=== PATIENT | female | born 1975 | race Caucasian/White ===

== ENCOUNTER 2016-06-19 16:59 | Emergency (ER) | payer MEDICAID ==
[~2016-06-19] VITALS: Wt 90.0 kg
[~2016-06-19 16:59] MED LIST: HYDR-3498 PO; IBUP-1542 PO
[2016-06-19] MEDS ORDERED: LIDOCAINE 1% (MDV) 20 ML INJ SC ONE (19:00)
[2016-06-19] MEDS ORDERED: CEPH-443 PO (19:04)
[2016-06-19] MEDS ORDERED: BACTDS PO (19:05)
[2016-06-19 19:24] VITALS: BP 137/89; PULSE 86; RESP 20; TEMP 98.6
--- NOTE | 2016-06-19 21:02 | ERD ---
ER Documentation Chief Complaint Date/Time DATE: 06/19/16 TIME: 20:58 Chief Complaint VAGINAL SWELLING FROM CYST ONSET ABOUT 3 DAYS AGO . NO DRAINAGE ROS All systems reviewed and are negative except as per history of present illness. Medications Home Meds Active Scripts Sulfamethoxazole-Trimethoprim* (Bactrim* DS) 800-160 Mg Tab, 1 TAB PO BID for 5 Days, TAB Prov:SONA WHEELER PA-C 06/19/16 Cephalexin* (Keflex*) 500 Mg Capsule, 500 MG PO QID for 5 Days, CAP Prov:SONA WHEELER PA-C 06/19/16 Ibuprofen* (Motrin*) 600 Mg Tab, 600 MG PO Q6, #30 TAB Prov:KATIUSKA HENRY MD 07/28/15 Hydrocodone Bit-Acetaminophen* ([place]*) 5-325 Mg Tab, 1 TAB PO Q6 Y for PAIN, # 14 TAB Prov:KATIUSKA HENRY MD 07/28/15 Allergies Allergies: Coded Allergies: aspirin (Verified Allergy, Unknown, RASH/SWELLING, 04/27/14) PMhx/Soc Medical and Surgical Hx: pt denies Medical Hx, pt denies Surgical Hx History of Surgery: No Anesthesia Reaction: No Hx Neurological Disorder: No Hx Respiratory Disorders: No Hx Cardiac Disorders: No Hx Psychiatric Problems: No Hx Miscellaneous Medical Probl: Yes (bartholin cysts) Hx Alcohol Use: No Hx Substance Use: No Hx Tobacco Use: No Smoking Status: Never smoker FmHx Family History: No coronary disease, No diabetes, No other Physical Exam Vitals Vital Signs Date Time Temp Pulse Resp B/P Pulse Ox O2 Delivery O2 Flow Rate FiO2 06/19/16 19:24 98.6 86 20 137/89 100 Room Air 06/19/16 18:10 100.0 90 20 157/88 99 Physical Exam GENERAL: Well-developed, well-nourished female. Appears in no acute distress. HEAD: Normocephalic, atraumatic. EYES: Pupils are equally reactive bilaterally. EOMs grossly intact. No conjunctival erythema. ENT: Moist mucous membranes. No uvula deviation. No kissing tonsils. No exudates. NECK: Supple. No lymphadenopathy or thyromegaly. No meningismus. negative kernig. negative brudinski. LUNG: Clear to auscultation bilaterally. No rhonchi, wheezing, rales or coarse breath sounds. HEART: Regular rate and rhythm. No murmurs, rubs or gallops. ABDOMEN: No scars, ecchymosis or rashes noted. Soft, nontender, and nondistended. Positive bowel sounds in all four quadrants. No rebound tenderness , no guarding. (-) McBurneys point tenderness. No CVA tenderness. : 3cm mostly indurated cyst on left vaginal area. BACK: No midline tenderness. Extremities: Equal pulses bilaterally. No peripheral clubbing, cyanosis or edema. No unilateral leg swelling. NEUROLOGIC: Alert and oriented. Moving all four extremities. 5/5 strength in all extremities. Normal speech. Steady gait. SKIN: Normal color. Warm and dry. No rashes or lesions. Capillary refill < 2 seconds Results 24 hrs Current Medications Medications (Trade) Dose Ordered Sig/Kristin Route PRN Reason Start Time Stop Time Status Last Admin Dose Admin Lidocaine (Xylocaine 1% (Mdv) 20 ml) 20 ml ONCE ONCE SC 06/19/16 19:00 06/19/16 19:01 DC Procedures/MDM ER COURSE: I kept the patient and/or family informed of laboratory and diagnostic imaging results throughout the emergency room course. PROCEDURES: Abscess Incision and Drainage with irrigation by me: Location: 3 cm left vaginal area Anesthesia: [Local 1% Lidocaine] Technique: [Irrigated. very minimal drainage] Packing: [None] Complications: [Neurovascularly intact post procedure] 48 hour wound check. Scar minimization instructions given. Patient's skin symptoms have stabilized while they have been evaluated in the department and are appropriate for outpatient care and work up. MEDICAL DECISION MAKING: This is a 40-year-old female who presents with Bartholin's cyst. Vital signs were reviewed. Patient is afebrile. Patient is not hypoxic. Patient has a low- grade fever. I decided to attempt I&D as patient is requesting it. However the cyst is mostly indurated with very mild fluctuance. Low suspicion for necrotizing fasciitis, SJS, toxic epidermal necrolysis, Kawasaki, erythema multiforme, gangrene, scarlet fever, meningococcemia, sepsis, anaphylaxis, sepsis, deep space infection, or foreign body. DISCHARGE: At this time, patient is stable for discharge and outpatient management with no new complaints during the ER course. Patient was sent home with Bactrim and Keflex. Patient needs to follow up with gynecology for further evaluation as she has had multiple bartholyn cysts in the past. I advised patient return to the ED in 2 days for recheck. patient will be discharged home with instructions to recheck for new or worsening symptoms such as fever, nausea, weakness, LOC and to follow up with primary care in the next 1-2 days. Patient was advised to return to the ER for any new or worsening symptoms. Plan was discussed and patient and/or family understands and agrees. Home instructions were given. Departure Diagnosis: Primary Impression: Bartholin's cyst Condition: Stable Patient Instructions: Bartholin's Cyst (I And D) Referrals: LESTER FRIEDMAN (PCP) JULIAN ANDERSON MD, AZIZEH BARNES, MALKA DELSHAD, GEORGE M MD Additional Instructions: Call your primary care doctor TOMORROW for an appointment during the next 1-2 days.See the doctor sooner or return here if your condition worsens before your appointment time. Follow up with gynecology. Warm compresses and sitz baths. SONA WHEELER PA-C Jun 19, 2016 21:02
--- NOTE | 2016-06-21 18:01 | QN ---
Documentation Comment Laborist consult: 40 y.o. with a left Bartholins cyst. Pt was here 2 days ago and an attempt was made at drainage unsuccessfully. The area is now twice as big, per the pt, and much more painful. Pt denies a fever. PMHx: none. PSHx: C/S x 2. POBHx: x 1, C/S x 2. All: ASA. Procedure: An orange size left Bartholins abscess was identified. The area just inside the entroitus was cleaned with Betadine and 1 cc 1% Lidocaine was injected under the skin. The areq was incised with a #11 blade and a large volume of dark, red purulent, non-malodorous d/c was extruded. The base was massged gently to break up any loculations and more d/c was released. The whole left labia shrank appropriately except for a round bulbous golf ball size area involving the edge of the labia minora.This was incised in the same manner and the same d/c was extruded. The edges of the incision were bleeding but not heavily. Applied pressure with a 4x4 gauze roll while cleaning the whole external area up. Replaced the gauze with instruction for the pt to leave it in place for now for a few hours. A: Left Bartholin's abscess, s/p drainage. P: Keep the area clean and dry. May wash with soap and water. Instructed the HISTORY INSTRUCTOR to give the pt some sterile 4x4's to take home so, if need be, she may place as a pressure dressing to the area. Pt told it will take a few days to go down. She may follow up with her clinic. She may continue the antibiotics she was given at her prior visit. OLEGARIO PIRES MD Jun 21, 2016 18:01
== END 2016-06-19 19:27 | disposition home or self-care (01) ==
LOC: FTE 16:59
DX: N75.0 Cyst of Bartholin's gland (principal)
CPT/HCPCS: 56420; Z7502; Z7610

== ENCOUNTER 2016-06-21 11:40 | Emergency (ER) | payer MEDICAID ==
[~2016-06-21] VITALS: Wt 90.6 kg
[~2016-06-21 11:40] MED LIST changes: +BACTDS PO; +CEPH-443 PO
--- NOTE | 2016-06-21 14:22 | ERD ---
ER Documentation Chief Complaint Date/Time DATE: 06/21/16 TIME: 14:19 Chief Complaint BARTOLIN CYST NOTED ON THURSDAY , HERE FOR SAME. MORE PAIN NO DRAINAGE HPI This is a 40-year-old female presenting to the ER for Bartholin's cyst evaluation. Patient states she was here 2 days ago in which an incision and drainage was done for Bartholin's cyst abscess. patient states pain has gotten worse however no drainage. Patient states abscess has gotten bigger. Patient was placed on Bactrim and Keflex starting 2 days ago after incision and drainage. Patient states this is a recurrent problem for her and has had a catheter placed previously for this about 2 years ago. No fevers or chills. Patient having significant pain and rating pain 9/10. Patient took ibuprofen about 4 hours ago. ROS All systems reviewed and are negative except as per history of present illness. Medications Home Meds Active Scripts Hydrocodone/Acetaminophen ([place] 5-325 Tablet) 1 Each Tablet, 1 TAB PO Q6H Y for PAIN, #7 TAB Prov:DOREEN BARKER NP 06/21/16 Sulfamethoxazole-Trimethoprim* (Bactrim* DS) 800-160 Mg Tab, 1 TAB PO BID for 5 Days, TAB Prov:SONA WHEELER-C 06/19/16 Cephalexin* (Keflex*) 500 Mg Capsule, 500 MG PO QID for 5 Days, CAP Prov:SONA WHEELER PA-C 06/19/16 Ibuprofen* (Motrin*) 600 Mg Tab, 600 MG PO Q6, #30 TAB Prov:KATIUSKA HENRY MD 07/28/15 Hydrocodone Bit-Acetaminophen* ([place]*) 5-325 Mg Tab, 1 TAB PO Q6 Y for PAIN, # 14 TAB Prov:KATIUSKA HENRY MD 07/28/15 Allergies Allergies: Coded Allergies: aspirin (Verified Allergy, Unknown, RASH/SWELLING, 04/27/14) PMhx/Soc History of Surgery: No Anesthesia Reaction: No Hx Neurological Disorder: No Hx Respiratory Disorders: Yes (ASTHMA) Hx Cardiac Disorders: No Hx Psychiatric Problems: No Hx Miscellaneous Medical Probl: Yes (recurrent bartholin's cyst) Hx Alcohol Use: No Hx Substance Use: No Hx Tobacco Use: No Smoking Status: Never smoker Physical Exam Vitals Vital Signs Date Time Temp Pulse Resp B/P Pulse Ox O2 Delivery O2 Flow Rate FiO2 06/21/16 17:25 99.1 87 20 134/90 99 Room Air 06/21/16 11:43 98.8 101 20 133/86 98 Physical Exam Const: No acute distress, alert Head: Atraumatic Eyes: Normal Conjunctiva ENT: Normal External Ears, Nose and Mouth. Neck: Full range of motion..~ No meningismus. Resp: Clear to auscultation bilaterally Cardio: Regular rate and rhythm, no murmurs Abd: Soft, non tender, non distended. Normal bowel sounds Skin: No petechiae or rashes Back: No midline or flank tenderness Ext: No cyanosis, or edema Neur: Awake and alert Psych: Normal Mood and Affect : large 2 inch x 1 inch Bartholin cyst to right labia Results 24 hrs Current Medications Medications (Trade) Dose Ordered Sig/Kristin Route PRN Reason Start Time Stop Time Status Last Admin Dose Admin Acetaminophen (Tylenol Tab) 500 mg ONCE STAT PO 06/21/16 14:34 06/21/16 14:35 DC 06/21/16 14:44 Lidocaine (Xylocaine 1% (Mdv) 20 ml) 20 ml ONCE ONCE SC 06/21/16 16:00 06/21/16 16:01 DC Acetaminophen/ Hydrocodone Bitart ([place] (5/325)) 1 tab ONCE ONCE PO 06/21/16 16:30 06/21/16 16:31 DC 06/21/16 16:50 Procedures/MDM ED COURSE: The patient was stable throughout ED course. I kept the patient and/or family informed of laboratory and diagnostic imaging results throughout the ED course. MDM: 40-year-old female presents to the ER for recurrent Bartholin's cyst. Patient had incision and drainage 2 days ago however pain has gotten worse. Patient believes the abscess has gotten larger. No fevers or chills. Patient has recurrent Bartholin's cyst. Consulted laborist power transmission engineer, Dr. Tam for evaluation. Abscess Incision and Drainage with irrigation by Dr. Tam Location: right labia Anesthesia: Local 1% Lidocaine Technique: Irrigated. Disrupted loculations w/ instrumentation Packing: None Complications: Neurovascularly intact post procedure 48 hour wound check. Scar minimization instructions given. Patient's skin symptoms have stabilized while they have been evaluated in the department and are appropriate for outpatient care and work up. Exam and w/u not consistent w/ sepsis, deep space infection, or foreign body. Diagnosis is Bartholin's cyst. Departure Diagnosis: Primary Impression: Bartholin's cyst Condition: Stable DOREEN BARKER NP Jun 21, 2016 14:22
[2016-06-21] MEDS ORDERED: ACETAMINOPHEN 500 MG TAB PO STA (14:34)
[2016-06-21] MEDS ORDERED: LIDOCAINE 1% (MDV) 20 ML INJ SC ONE (16:00)
[2016-06-21] MEDS ORDERED: HYDR-906 PO (16:19)
[2016-06-21] MEDS ORDERED: HYDROCODONE/APAP (5/325) TAB PO ONE (16:30)
[2016-06-21 17:25] VITALS: BP 134/90; PULSE 87; RESP 20; TEMP 99.1
== END 2016-06-21 17:25 | disposition home or self-care (01) ==
LOC: FTE 11:40
DX: N75.0 Cyst of Bartholin's gland (principal); J45.909 Unspecified asthma, uncomplicated
CPT/HCPCS: 56420; Z7502; Z7610

== ENCOUNTER 2016-12-13 13:59 | Emergency (ER) | payer MEDICAID ==
[~2016-12-13] VITALS: Ht 162.6 cm; Wt 90.0 kg
[~2016-12-13 13:59] MED LIST changes: +HYDR-906 PO
[2016-12-13 14:00] VITALS: Ht 162.6 cm; Wt 90.0 kg
[2016-12-13] MEDS ORDERED: IBUPROFEN 600 MG TAB PO ONE (15:00)
[2016-12-13] MEDS ORDERED: CEPH-443 PO (17:09)
[2016-12-13] MEDS ORDERED: BACITUD TOP (17:09)
--- NOTE | 2016-12-13 17:12 | QN ---
Documentation Comment Patient is a 41-year-old who presents with a left Bartholin's cyst abscess which she has had for the last 3-4 years Patient reports several visits to the ED for I&D of Bartholin's cyst abscess over the last several years She was seen earlier this year in the emergency room here which an I&D was performed at bedside and patient was sent home Upon evaluation today patient's vital signs are stable 4-5 cm left Bartholin's cyst abscess was noted on the left perineal area which patient reports of having pain and difficulty walking Patient was consented for an I&D procedure of the left Bartholin's cyst abscess Then under sterile techniques 5 cc of 1% lidocaine was given for local anesthesia Using a scalpel half a centimeter incision was placed in the middle of the Bartholin's cyst abscess No exudate material was noted; mostly bloody and watery drainage was noted The contents of fluid was sent for both aerobic and anaerobic culture Bartholin's cyst was drained then using silver nitrate sticks the bleeding was controlled Excellent hemostasis was noted Patient tolerated the procedure well Patient was instructed to apply [id number] triple antibiotics on the incision site She was given a prescription for oral antibiotics to be taken for 1 week Patient was further counseled that she should be evaluated by a certified travel counselor as an outpatient for surgical management by marsupialization of the Bartholin's cyst abscess Given the recurrent nature of the Bartholin cyst abscess patient requires surgical management to be scheduled as an outpatient surgery Patient completely understood the plan of care and all her questions were answered Patient is planning to make an appointment with her doctors at [facility] BERT BERKOWITZ MD Dec 13, 2016 17:12
[2016-12-13] MEDS ORDERED: BACITRACIN 0.9 GM OINT TOP ONE (17:30)
[2016-12-13 17:35] VITALS: BP 144/84; PULSE 84; RESP 18; TEMP 98.4
--- NOTE | 2016-12-13 18:10 | ERD ---
ER Documentation Chief Complaint Date/Time DATE: 12/13/16 TIME: 18:04 Chief Complaint ABCESS ON VAGINAL AREA , LUMP ON NECK HPI This is a 41-year-old female presenting to the emergency department for recurrent Bartholin's gland abscess. Patient states she developed pain and swelling to vaginal area 3 days ago. Patient states pain and swelling feels exactly the same as it did with previous Bartholin's gland abscesses. Patient denies any vaginal bleeding or discharge. No fevers or chills. No recent unprotected sex. Patient rating pain 6/10 and has not taken medication for this. Patient states this is an ongoing problem over the last 3-4 years however she has not been able to see an [facility] outpatient for this. ROS All systems reviewed and are negative except as per history of present illness. Medications Home Meds Active Scripts Bacitracin* (Bacitracin Oint (UD)*) 1 Applic Oint, 1 APPLIC TOP ONCE for 7 Days , PKT APPLY TO Prov:DOREEN BARKER NP 12/13/16 Cephalexin* (Keflex*) 500 Mg Capsule, 500 MG PO BID for 7 Days, CAP Prov:DOREEN BARKER NP 12/13/16 Hydrocodone/Acetaminophen ([place] 5-325 Tablet) 1 Each Tablet, 1 TAB PO Q6H Y for PAIN, #7 TAB Prov:DOREEN BARKER NP 06/21/16 Sulfamethoxazole-Trimethoprim* (Bactrim* DS) 800-160 Mg Tab, 1 TAB PO BID for 5 Days, TAB Prov:SONA WHEELER PA-C 06/19/16 Cephalexin* (Keflex*) 500 Mg Capsule, 500 MG PO QID for 5 Days, CAP Prov:BRYANTARIJOSHUA LIMAZ PA-C 06/19/16 Ibuprofen* (Motrin*) 600 Mg Tab, 600 MG PO Q6, #30 TAB Prov:KATIUSKA HENRY MD 07/28/15 Hydrocodone Bit-Acetaminophen* ([place]*) 5-325 Mg Tab, 1 TAB PO Q6 Y for PAIN, # 14 TAB Prov:KATIUSKA HENRY MD 07/28/15 Allergies Allergies: Coded Allergies: aspirin (Verified Allergy, Unknown, RASH/SWELLING, 04/27/14) PMhx/Soc History of Surgery: No Anesthesia Reaction: No Hx Neurological Disorder: No Hx Respiratory Disorders: Yes (ASTHMA) Hx Cardiac Disorders: No Hx Psychiatric Problems: No Hx Miscellaneous Medical Probl: Yes (recurrent bartholin's cyst) Hx Alcohol Use: No Hx Substance Use: No Hx Tobacco Use: No Physical Exam Vitals Vital Signs Date Time Temp Pulse Resp B/P Pulse Ox O2 Delivery O2 Flow Rate FiO2 12/13/16 17:35 98.4 84 18 144/84 98 Room Air 12/13/16 14:00 98.1 88 18 150/88 99 Physical Exam Const: No acute distress, alert Head: Atraumatic Eyes: Normal Conjunctiva ENT: Normal External Ears, Nose and Mouth. Neck: Full range of motion..~ No meningismus. Resp: Clear to auscultation bilaterally Cardio: Regular rate and rhythm, no murmurs Abd: Soft, non tender, non distended. Normal bowel sounds Skin: No petechiae or rashes Back: No midline or flank tenderness Ext: No cyanosis, or edema Neur: Awake and alert Psych: Normal Mood and Affect 4-5 cm left Bartholin's cyst abscess was noted on the left perineal area Results 24 hrs Current Medications Medications (Trade) Dose Ordered Sig/Kristin Route PRN Reason Start Time Stop Time Status Last Admin Dose Admin Ibuprofen (Motrin) 600 mg ONCE ONCE PO 12/13/16 15:00 12/13/16 15:01 DC 12/13/16 15:18 Bacitracin (Bacitracin Oint (Ud)) 1 applic ONCE ONCE TOP 12/13/16 17:30 12/13/16 17:31 DC 12/13/16 17:08 Procedures/MDM MDM: This is a 41-year-old female presenting to emergency department for recurrent Bartholin's gland abscess. No vaginal bleeding or drainage. Patient states this pain feels exactly the same as her previous Bartholin's gland abscesses. Consulted Dr. Chatman, laborist family and consumer education teacher, regarding this patient. Dr. Chatman performed I and D at bedside while in the ED and can refer to her note for more detailed explanation. Patient tolerated procedure well. Patient is appropriate for outpatient management and will be given prescription for Keflex and bacitracin ointment. Instructed patient to follow-up with PCP or [facility] in the next 2-3 days for reassessment and additional management. Instructed patient she needs to follow-up with all of you [facility] for surgical consultation. Return to ED for any high fever, chest pain, difficulty breathing , shortness breath, wheezing, vomiting, diarrhea, abdominal pain or any new or worsening symptoms. Patient verbalizes understanding. All questions answered at discharge. Departure Diagnosis: Primary Impression: Bartholin's gland abscess Condition: Stable Patient Instructions: Bartholin's Cyst (I And D) Referrals: DINO HERNANDEZ [facility] YOU HAVE RECEIVED A MEDICAL SCREENING EXAM AND THE RESULTS INDICATE THAT YOU DO NOT HAVE A CONDITION THAT REQUIRES URGENT TREATMENT IN THE EMERGENCY DEPARTMENT. FURTHER EVALUATION AND TREATMENT OF YOUR CONDITION CAN WAIT UNTIL YOU ARE SEEN IN YOUR DOCTORS OFFICE WITHIN THE NEXT 1-2 DAYS. IT IS YOUR RESPONSIBILITY TO MAKE AN APPOINTMENT FOR FOLOW-UP CARE. IF YOU HAVE A PRIMARY DOCTOR --you should call your primary doctor and schedule an appointment IF YOU DO NOT HAVE A PRIMARY DOCTOR YOU CAN CALL OUR PHYSICIAN REFERRAL HOTLINE AT IF YOU CAN NOT AFFORD TO SEE A PHYSICIAN YOU CAN CHOSE FROM THE FOLLOWING [facility] [address] [facility] [address] [facility]. [facility] [address] [facility] [address] [facility] [address] [facility]. [facility]. [address] [facility]. [facility] YOU HAVE RECEIVED A MEDICAL SCREENING EXAM AND THE RESULTS INDICATE THAT YOU DO NOT HAVE A CONDITION THAT REQUIRES URGENT TREATMENT IN THE EMERGENCY DEPARTMENT. FURTHER EVALUATION AND TREATMENT OF YOUR CONDITION CAN WAIT UNTIL YOU ARE SEEN IN YOUR DOCTORS OFFICE WITHIN THE NEXT 1-2 DAYS. IT IS YOUR RESPONSIBILITY TO MAKE AN APPOINTMENT FOR FOLOW-UP CARE. IF YOU HAVE A PRIMARY DOCTOR --you should call your primary doctor and schedule and appointment IF YOU DO NOT HAVE A PRIMARY DOCTOR YOU CAN CALL OUR PHYSICIAN REFERRAL HOTLINE AT . IF YOU CAN NOT AFFORD TO SEE A PHYSICIAN YOU CAN CHOSE FROM THE FOLLOWING [facility]: [facility] [address] [place] [address] [facility] [address] [place] [address] [facility] [address] [place] [address] [facility] [place] [address] [facility] [address] [place] [address] OFFICE FAX , JLUIAN [address] [place] [address] [address] PADILLA [address]PO[address]O [address] [place] [address] [address] DEJESUS [facility] [address] [facility] [facility] [address] [address] [address] [place] [address] [facility] [address] [place] [address] [phone] [facility] [address] - OLEGARIO TONEY [address] [facility]. [address], [facility] [address] [address], [place] [address] [facility]. [address], [facility] [address] [address] [facility] [address] [place], [place] [id number] Additional Instructions: Call your primary care doctor TOMORROW for an appointment during the next 2-3 days.See the doctor sooner or return here if your condition worsens before your appointment time. Return to ED for any high fever, chest pain, difficulty breathing, shortness breath, wheezing, vomiting, diarrhea, abdominal pain or any new or worsening symptoms. DOREEN BARKER NP Dec 13, 2016 18:09
== END 2016-12-13 17:35 | disposition home or self-care (01) ==
LOC: FTE 13:59
DX: N75.1 Abscess of Bartholin's gland (principal); J45.909 Unspecified asthma, uncomplicated
CPT/HCPCS: 56420; 87081; Z7502; Z7610

== ENCOUNTER 2017-07-01 08:27 | Emergency (ER) | END 2017-07-01 09:50 | disposition home or self-care (01) ==

== ENCOUNTER 2018-01-25 10:11 | Emergency (ER) | END 2018-01-25 11:35 | disposition home or self-care (01) ==

== ENCOUNTER 2018-02-20 11:20 | Emergency (ER) | END 2018-02-20 13:32 | disposition home or self-care (01) ==